=== PATIENT | male | born 1975 | race American Indian/Alaskan Native ===

== ENCOUNTER 2018-08-13 23:56 | Emergency (ER) | payer SELFPAY ==
[2018-08-14 00:41] LABS: Hematocrit 42.2 % (35.5-45.6); Hemoglobin 14.9 gm/dl (11.8-15.2); Mean Corpuscular HGB Conc 35 % (32-34); Mean Corpuscular Volume 80 fl (84-94); Platelet Count 195 K/mm3 (140-440); Red Blood Count 5.31 M/mm3 (3.65-5.03); Red Cell Distribution Width 15.6 % (13.2-15.2)
[2018-08-14 01:01] LABS: BUN/Creatinine Ratio 9; Blood Urea Nitrogen 12 mg/dL (9-20); Calcium 9.3 mg/dL (8.4-10.2); Hemolysis Index 8
[2018-08-14] MEDS ORDERED: NACL 0.9% 1000 ML 1,000 ML IV ONE (01:07)
[2018-08-14] MEDS ORDERED: PEPCID IV ONE (01:07)
[2018-08-14] MEDS ORDERED: TYLENOL PO ONE (01:07)
--- NOTE | 2018-08-14 01:09 | Emergency Department Report ---
ED General Adult HPI - General Chief complaint: GI Bleed Stated complaint: FEVER, BODY ACHES, BLOODY STOOL Time Seen by Provider: 08/14/18 00:51 Source: patient, RN notes reviewed Mode of arrival: Ambulatory Limitations: No Limitations - History of Present Illness Initial comments: This is a pleasant 43-year-old gentleman, not known to this provider previously. His primary care doctor is with the [facility]. His past medical history includes hypertension, HIV, reports "very low viral load", and does not know his CD4 count. He is currently on highly active antiretroviral therapy. The patient presents to the emergency room with cough, myalgias, body aches, subjective fever at home, abdominal cramping, dysuria, and bright red blood per rectum. His symptoms have been going on for around a week. He denies sudden or thunderclap headache. He does have a mild frontal sinus headache which she associates with congestion and cough. He was seen by his primary care doctor earlier on this week, and believes he was prescribed azithromycin. This really didn't help out his symptoms. He may be given Tessalon Perles. He is not sure. He has no sore throat at this time or neck pain or neck stiffness. He has no chest pain or new or different shortness of breath. There is a positive cough with dry mucus. He currently does not have abdominal pain, but does admit that his abdomen was "tense" earlier on this week. He does not take any blood thinners. He has no testicular pain. He endorses dysuria. Patient reports multiple sexual contacts in the past 3 months. Patient endorses intermittent barrier protection, and endorses taking active and passive role during intimacy. Symptoms appear to be intermittent, does not radiate anywhere, and did not appear to have exacerbating or relieving factors that he is aware of. -: Gradual, days(s) Location: head, face, back, abdomen, left, right, upper extremity, lower extremity Consistency: intermittent Improves with: none Worsens with: none - Related Data Home Medications Medication Instructions Recorded Confirmed Last Taken Biktarvy 50-200-25 mg (Nf) 08/14/18 08/14/18 Prezcobix 800 mg-150 mg (Nf) 800 mg PO DAILY 08/14/18 08/14/18 08/14/18 amLODIPine 08/14/18 08/14/18 Allergies Allergy/AdvReac Type Severity Reaction Status Date / Time No Known Allergies Allergy Unverified 06/01/13 20:14 ED Review of Systems ROS: Stated complaint: FEVER, BODY ACHES, BLOODY STOOL Other details as noted in HPI Constitutional: fever. denies: malaise, weakness Eyes: denies: eye discharge ENT: congestion Respiratory: cough Cardiovascular: denies: chest pain Gastrointestinal: hematochezia. denies: nausea, vomiting, hematemesis, melena Genitourinary: frequency Musculoskeletal: arthralgia, myalgia Skin: denies: lesions Neurological: headache. denies: weakness, numbness, paresthesias, confusion Psychiatric: denies: anxiety ED Past Medical Hx - Past Medical History Previous Medical History?: Yes Hx Hypertension: Yes Hx HIV: Yes - Surgical History Past Surgical History?: No - Social History Smoking Status: Never Smoker Substance Use Type: Alcohol - Medications Home Medications: Home Medications Medication Instructions Recorded Confirmed Last Taken Type Biktarvy 50-200-25 mg (Nf) 08/14/18 08/14/18 History Prezcobix 800 mg-150 mg (Nf) 800 mg PO DAILY 08/14/18 08/14/18 08/14/18 History amLODIPine 08/14/18 08/14/18 History ED Physical Exam - General Limitations: No Limitations General appearance: alert, in no apparent distress - Head Head exam: Present: atraumatic, normocephalic - Eye Eye exam: Present: normal appearance, PERRL, EOMI, other (visual acuity intact to finger counting, color perception, reading at a close distance). Absent: nystagmus - ENT ENT exam: Present: normal exam, normal orophraynx, mucous membranes moist, TM's normal bilaterally, normal external ear exam - Neck Neck exam: Present: normal inspection, full ROM. Absent: tenderness, meningismus - Respiratory Respiratory exam: Present: normal lung sounds bilaterally. Absent: respiratory distress - Cardiovascular Cardiovascular Exam: Present: regular rate, normal rhythm, normal heart sounds. Absent: bradycardia, tachycardia, irregular rhythm, systolic murmur, diastolic murmur, rubs, gallop - GI/Abdominal GI/Abdominal exam: Present: soft. Absent: distended, tenderness, guarding, rebound, rigid, pulsatile mass - Rectal Rectal exam: Present: normal inspection, normal rectal tone, other (chaperoned by nurse Phong Campbell). Absent: heme (-) stool, mass, tenderness, normal prostate, prostate tenderness, prostate enlargement - exam: Present: normal inspection, other (there is no testicular tenderness. There is normal testicular lie bilaterally. There is normal cremasteric reflex bilaterally.). Absent: testicular tenderness External exam: Present: normal external exam, other (chaperoned by nurse Phong Campbell) - Extremities Exam Extremities exam: Present: normal inspection, full ROM, other (2+ pulses noted in the bilateral upper, lower extremities. Compartments soft. No long bony tenderness. The pelvis is stable.). Absent: tenderness, pedal edema, joint swelling, calf tenderness - Back Exam Back exam: Present: normal inspection, full ROM. Absent: tenderness, CVA tenderness (R), CVA tenderness (L), paraspinal tenderness, vertebral tenderness - Neurological Exam Neurological exam: Present: alert, oriented X3, other (Extraocular movements intact. Tongue midline. No facial droop. Facial sensation intact to light touch in the V1, V2, V3 distribution bilaterally. 5 and 5 strength in 4 extremities.. Sensation is intact to light touch in 4 extremities.). Absent: motor sensory deficit - Psychiatric Psychiatric exam: Present: normal affect, normal mood - Skin Skin exam: Present: warm, dry, intact, normal color. Absent: rash ED Course Vital Signs 08/14/18 08/14/18 08/14/18 00:08 00:10 00:40 Temperature 99.9 F H 99.9 F H Pulse Rate 97 H 92 H Respiratory 18 11 L Rate Blood Pressure 162/93 O2 Sat by Pulse 98 Oximetry 08/14/18 08/14/18 08/14/18 00:41 00:42 00:43 Temperature Pulse Rate 93 H 93 H 90 Respiratory 21 16 16 Rate Blood Pressure 134/98 134/98 134/98 O2 Sat by Pulse 100 98 Oximetry 08/14/18 08/14/18 08/14/18 00:45 00:47 00:49 Temperature Pulse Rate 91 H 89 95 H Respiratory 19 22 24 Rate Blood Pressure 141/97 141/97 141/97 O2 Sat by Pulse 98 98 98 Oximetry 08/14/18 08/14/18 08/14/18 00:51 00:53 00:55 Temperature Pulse Rate 89 98 H 89 Respiratory 17 17 24 Rate Blood Pressure 141/97 141/97 141/97 O2 Sat by Pulse 99 100 99 Oximetry 08/14/18 08/14/18 08/14/18 00:57 00:59 01:00 Temperature Pulse Rate 90 85 94 H Respiratory 20 13 13 Rate Blood Pressure 141/97 141/97 141/97 O2 Sat by Pulse 98 100 100 Oximetry 08/14/18 08/14/18 08/14/18 01:01 01:03 01:05 Temperature Pulse Rate 84 Respiratory 16 13 16 Rate Blood Pressure 143/97 143/97 143/97 O2 Sat by Pulse 100 99 99 Oximetry 08/14/18 08/14/18 08/14/18 01:07 01:09 01:10 Temperature Pulse Rate 84 87 87 Respiratory 12 18 20 Rate Blood Pressure 143/97 143/97 143/97 O2 Sat by Pulse 99 99 99 Oximetry 08/14/18 08/14/18 08/14/18 01:11 01:25 01:27 Temperature Pulse Rate 89 90 84 Respiratory 16 13 15 Rate Blood Pressure 143/97 143/97 143/97 O2 Sat by Pulse 100 98 99 Oximetry 08/14/18 08/14/18 08/14/18 01:29 01:30 01:31 Temperature Pulse Rate 93 H 85 85 Respiratory 11 L 18 13 Rate Blood Pressure 143/97 135/91 135/91 O2 Sat by Pulse 99 99 99 Oximetry 08/14/18 08/14/18 08/14/18 01:33 01:35 01:37 Temperature Pulse Rate 83 82 84 Respiratory 12 20 12 Rate Blood Pressure 135/91 135/91 135/91 O2 Sat by Pulse 100 98 99 Oximetry 08/14/18 08/14/18 08/14/18 01:39 02:15 02:17 Temperature Pulse Rate 84 77 Respiratory 18 19 Rate Blood Pressure 135/91 143/97 129/88 O2 Sat by Pulse 100 100 100 Oximetry 08/14/18 08/14/18 08/14/18 02:19 02:21 02:23 Temperature Pulse Rate 78 79 80 Respiratory 18 20 19 Rate Blood Pressure 129/88 129/88 129/88 O2 Sat by Pulse 99 99 98 Oximetry 08/14/18 08/14/18 02:25 04:09 Temperature Pulse Rate 84 Respiratory 17 Rate Blood Pressure 129/88 128/79 O2 Sat by Pulse 98 Oximetry - Reevaluation(s) Reevaluation #1: 08/14/18 01:36 Differential diagnosis, including not limited to: Antibiotic associated diarrhea, viral syndrome, pneumonia, urinary tract infection, colitis, diverticulitis, proctitis Assessment and plan: 43-year-old gentleman, very well appearing, reports being immunocompetent, with fever, myalgias, cough, recently prescribed azithromycin, with reported bright red blood per rectum. In the emergency room, has a low- grade temperature, but otherwise is very well appearing, with reassuring vital signs, with no neck stiffness, and no meningeal signs. When I walk into the room to examine the patient, he is playing on a cellular phone. His physical exam is wholly unremarkable, and there is no bright red blood per rectum on my exam. His stool appears to be guaiac negative. Screening laboratory studies so far. To be unremarkable. So far, has not had diarrhea while here in the emergency Department. We will treat his symptoms, obtained CT scan of the abdomen and pelvis and reassess. They saw for the history and physical, we do not suspect invasive intracranial infection at this time. There are no cranial nerve deficits. There is no neck pain or neck stiffness. We will reassess after his initial diagnostics have been rendered. We have requested stool studies. Reevaluation #2: 08/14/18 04:13 CT scan of the abdomen and pelvis is negative for acute disease. Patient resting comfortably, and stretcher, and in no acute distress. Vital signs remained stable. Urinalysis not consistent with urinary tract infection. Patient has been observed in this department for hours, and he has not produced any diarrhea. He does not appear to have a medically emergent condition at this time. He will be discharged with instructions to continue current outpatient medications, and to follow-up with his outpatient primary care doctor, as well as outpatient gastroenterology. Return precautions reviewed. ED Medical Decision Making - Lab Data Result diagrams: 08/14/18 00:26 08/14/18 00:26 Vital Signs 08/14/18 08/14/18 00:08 00:10 Temperature 99.9 F H 99.9 F H Pulse Rate 97 H Respiratory 18 Rate Blood Pressure 162/93 O2 Sat by Pulse 98 Oximetry Lab Results 08/14/18 08/14/18 Range/Units 00:26 00:26 WBC 6.6 (4.5-11.0) K/mm3 RBC 5.31 H (3.65-5.03) M/mm3 Hgb 14.9 (11.8-15.2) gm/dl Hct 42.2 (35.5-45.6) % MCV 80 L (84-94) fl MCH 28 (28-32) pg MCHC 35 H (32-34) % RDW 15.6 H (13.2-15.2) % Plt Count 195 (140-440) K/mm3 [place] % (Auto) Firebrick Layer Sodium 137 (137-145) mmol/L Potassium 3.7 (3.6-5.0) mmol/L Chloride 98.8 (98-107) mmol/L Carbon Dioxide 28 (22-30) mmol/L Anion Gap 14 mmol/L BUN 12 (9-20) mg/dL Creatinine 1.4 (0.8-1.5) mg/dL Estimated GFR > 60 ml/min BUN/Creatinine Ratio 9 % Glucose 123 H (75-100) mg/dL Calcium 9.3 (8.4-10.2) mg/dL - Radiology Data Radiology results: report reviewed, image reviewed interpreted by me: X-ray of the chest is negative for acute disease. Print Report Referring Physician: NATHALY JIN Patient Name: NIKKO CHU Date of : 1975 Sex: Male Report Date: 2018-08-14 Report Status: [place] [address] Cat Scan Report Signed Patient: NIKKO CHU MR#: [id number] : 1975 Acct:[id number] Age/Sex: 43 / M ADM Date: 08/13/18 Loc: ED Attending Dr: Ordering Physician: NATHALY JIN MD Date of Service: 08/14/18 Procedure(s): CT abdomen pelvis w con Accession Number(s): [id number] cc: NATHALY JIN MD PROCEDURE: CT ABDOMEN PELVIS W CON TECHNIQUE: Computerized axial tomography of the abdomen and pelvis was performed after the IV injection of iodinated nonionic contrast. CT DOSE LENGTH PRODUCT: mGycm HISTORY: abd pain ? gi bleed vs abx associated diarrhea COMPARISONS: None . FINDINGS: Visualized lower thorax: No significant abnormality. Liver: Normal size and attenuation. Spleen: Normal size and attenuation. Gallbladder and biliary system: Normal. Pancreas: Normal. Adrenals: Normal. Kidneys: Normal. GI tract: There is no bowel obstruction, colitis or enteritis. The appendix is normal. . Lymph nodes and mesentery: Normal. Vasculature: Normal.. Bladder: Normal. Reproductive organs: Normal. Peritoneum: There is no ascites or free air, abscess or adenopathy.. Musculoskeletal structures: No significant abnormality. IMPRESSION: Normal examination of the abdomen and pelvis . This document is electronically signed by Abraham Rodriguez MD., August 14 2018 04:05:13 AM ET Transcribed By: CO Dictated By: ABRAHAM RODRIGUEZ MD Electronically Authenticated By: ABRAHAM RODRIGUEZ MD Signed Date/Time: 08/14/18 0406 Critical care attestation.: If time is entered above; I have spent that time in minutes in the direct care of this critically ill patient, excluding procedure time. ED Disposition Clinical Impression: History of rectal bleeding Disposition: DC-01 TO HOME OR SELFCARE Is pt being admited?: No Does the pt Need Aspirin: No Condition: Stable Additional Instructions: Laboratory studies today appeared to be unremarkable. CT scan of the abdomen and pelvis today was unremarkable for acute findings. X-ray of the chest today appeared to be unremarkable for significant findings. Cultures were sent today, and was also be available in the next 3-5 days. Please have primary care doctor contact medical records department to obtain culture results. Always practice safe sex practices, using barrier protection. Please follow-up with your primary care doctor within the next month. Please follow up with a timber robber within the next 2-3 weeks for history of rectal bleeding. Not following up as recommended may resultant undiagnosed tumor, cancer, malignancy. Continue current outpatient medications, and do not take metformin, for the next 48 hours, if patient takes this medication. Patient may take Tylenol, [id number], 650 mg, with food, every 4-6 hours, as needed for fever and pain, alternating with Motrin, 600 mg, with food, every 6 hours, as usual for pain. Please return to the emergency room right away with new, worsened or different symptoms, or symptoms not present on the initial emergency room evaluation. Referrals: [facility] [Provider Group] - 3-5 Days [facility] [Outside] - 3-5 Days Forms: Accompanied Note
--- NOTE | 2018-08-14 01:36 | XRay Report ---
PROCEDURE: XR CHEST ROUTINE 2V TECHNIQUE: PA and lateral chest radiographs were obtained. HISTORY: cough fever COMPARISONS: None. FINDINGS: Heart: Normal. Mediastinum/Vessels: Normal. Lungs/Pleural space: Normal. Bony thorax: No acute osseous abnormality. IMPRESSION: Normal examination. This document is electronically signed by Maryana Gutierrez DO., August 14 2018 01:34:45 AM ET
[2018-08-14 01:53] LABS: Alanine Aminotransferase 15 units/L (7-56); Albumin 3.8 g/dL (3.9-5)
[2018-08-14 02:13] LABS: Bilirubin,Direct < 0.2 mg/dL (0-0.2)
[2018-08-14 02:29] LABS: Bilirubin,Urine NEG (Negative); Blood,Urine NEG (Negative); Color,Urine Yellow (Yellow); Mucus,Urine FEW /HPF; Urobilinogen,Urine < 2.0 mg/dL (<2.0)
--- NOTE | 2018-08-14 04:06 | Cat Scan Report ---
PROCEDURE: CT ABDOMEN PELVIS W CON TECHNIQUE: Computerized axial tomography of the abdomen and pelvis was performed after the IV inject ion of iodinated nonionic contrast. CT DOSE LENGTH PRODUCT: mGycm HISTORY: abd pain ? gi bleed vs abx associated diarrhea COMPARISONS: None . FINDINGS: Visualized lower thorax: No significant abnormality. Liver: Normal size and attenuation. Spleen: Normal size and attenuation. Gallbladder and biliary system: Normal. Pancreas: Normal. Adrenals: Normal. Kidneys: Normal. GI tract: There is no bowel obstruction, colitis or enteritis. The appendix is normal. . Lymph nodes and mesentery: Normal. Vasculature: Normal.. Bladder: Normal. Reproductive organs: Normal. Peritoneum: There is no ascites or free air, abscess or adenopathy.. Musculoskeletal structures: No significant abnormality. IMPRESSION: Normal examination of the abdomen and pelvis . This document is electronically signed by Zachary Mckeon MD., August 14 2018 04:05:13 AM ET
[2018-08-14 04:10] VITALS: BP 128/79
[2018-08-14 05:50] LABS: Platelet Estimate Consistent w Auto; RBC Morphology Normal; Total Cells Counted 100
== END 2018-08-14 04:32 | disposition home or self-care (01) ==
LOC: ED 23:56
DX: K62.5 Hemorrhage of anus and rectum (principal); I10 Essential (primary) hypertension; Z79.899 Other long term (current) drug therapy
CPT/HCPCS: 36415; 71046; 74177; 80048; 80076; 81001; 82271; 82550; 83735; 85007; 85025; 87086; 96374; 99285; J7030; Q9967